=== PATIENT | male | born 1940 | race Caucasian/White ===

== ENCOUNTER 2018-10-20 08:38 | Day surgery (SDC) | payer MEDICARE ==
[2018-10-19 13:42] VITALS: BMI 22.7
[2018-10-20] MEDS ORDERED: Loperamide HCl 2 MG CAP PO SCH (13:30)
--- NOTE | 2018-10-20 19:39 | OP ---
DATE OF PROCEDURE: 10/20/2018 PROCEDURE: Colonoscopy with fecal transplant. PREPROCEDURE DIAGNOSES: 1. History of Crohn colitis in remission. 2. Recurrent diarrhea with Clostridium difficile, status post treatment 4 times now. POSTOPERATIVE DIAGNOSES: 1. Mild erosions in the rectum consistent with history of Crohn colitis. 2. 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 3. No evidence of active acute colitis. 4. Fecal transplant performed at 250 mL of fecal transplant solution comes [employer]. RECOMMENDATIONS: 1. Follow up in the office in 2 weeks. 2. Avoid antibiotics for one month. Continue other home medications. ANESTHESIA: TIVA. PROCEDURE IN DETAIL: The patient was informed of the risks, benefits, and possible complications of endoscopy including perforation, reaction to medication, aspiration, as well as indication for fecal transplant. There was recurrent C difficile infection, despite treatment with vancomycin and vancomycin tapers. Informed consent was obtained. The patient was brought to endoscopy suite, where he was sedated in a gradual fashion. Once he was comfortable, rectal exam was performed. The endoscope was advanced into the anal canal through the colon to the cecum and to the terminal ileum. There was atrophic mucosa throughout the colon, some pseudopolyps. There were mild erosions in the rectum and anal canal consistent with his history of Crohn colitis. There was no evidence of perirectal abscesses or fissures. The fecal transplant solution was instilled into the terminal ileum and cecum, and the colon was decompressed taking care not to suck the transplant material out. The patient was brought to recovery room in stable condition. Job ID: [id number]
== END 2018-10-20 14:10 | disposition home or self-care (01) ==
LOC: SDC 08:38
PROVIDERS: ATTEND Internal Medicine Gastroenterology
PROC: 3E0H8GC Introduction of Other Therapeutic Substance into Lower GI, Via Natural or Artificial Opening Endoscopic (ICD-10-PCS; principal; 2018-10-20)
DX: A04.72 Enterocolitis due to Clostridium difficile, not specified as recurrent (principal); K50.90 Crohn's disease, unspecified, without complications; I48.91 Unspecified atrial fibrillation; J42 Unspecified chronic bronchitis; Z86.73 Personal history of transient ischemic attack (TIA), and cerebral infarction without residual deficits; Z87.891 Personal history of nicotine dependence; Z79.01 Long term (current) use of anticoagulants; Z79.82 Long term (current) use of aspirin; Z79.899 Other long term (current) drug therapy; Z88.8 Allergy status to other drugs, medicaments and biological substances

== ENCOUNTER 2018-12-15 10:26 | Outpatient (CLI) | payer MEDICARE ==
--- NOTE | 2018-12-15 11:13 | RAD ---
CHEST TWO VIEWS: HISTORY: Dyspnea. COMPARISON: 06/26/2014 FINDINGS: Right apical pleural thickening. Linear and interstitial increased markings bilaterally with some rekha nting of the right costophrenic angle, stable. No confluent pneumonia, overt edema or pleural effusio n. IMPRESSION: No significant acute intrathoracic disease. Stable from prior study. POS: [facility]
== END 2018-12-15 10:27 | disposition home or self-care (01) ==
LOC: RAD 10:26
PROVIDERS: ATTEND Internal Medicine Critical Care Medicine
DX: R06.00 Dyspnea, unspecified (principal)
CPT/HCPCS: 71046

== ENCOUNTER 2021-01-02 03:24 | Inpatient (IN) | payer MEDICARE ==
[2021-01-02] MEDS ORDERED: Acetaminophen 325 MG TAB PO PRN (05:46)
[2021-01-02] MEDS ORDERED: Ondansetron PF 4 MG/2 ML Vial IVP PRN (05:46)
[2021-01-02 06:20] LABS: #Basophils 0.1 thou/uL (0.0-0.2); #Eosinphils 0.1 thou/uL (0.0-0.7); #Lymphocytes 0.7 thou/uL (1.20-3.40); #Neutrophils 8.1 thou/uL (1.40-6.50); %Basophils 0.6 % (0.0-1.0); %Eosinophils 0.9 % (0.0-10.0); %Lymphocytes 7.3 % (21.0-51.0); %Monocytes 10.3 % (0.0-10.0); %Neutrophils 80.9 % (42.0-75.0); Hemoglobin 9.2 g/dL (14.0-18.0); Mean Corpuscular HGB CONC 31.2 g/dL (32.0-36.0); Mean Corpuscular Hemoglobin 26.8 pg (27.0-31.0); Mean Corpuscular Volume 85.8 fL (78.0-98.0); Mean Platelet Volume 6.4 fL (7.4-10.4); Platelet Count 341 thou/uL (130-400); RBC Distribution Width 14.9 % (11.5-14.5); Red Blood Cell (RBC) Count 3.43 mill/uL (4.70-6.10)
[2021-01-02 06:29] LABS: PTT 29.7 sec (22.9-36.1)
[2021-01-02 06:30] LABS: Prothrombin Time 23.4 sec (12.0-14.7)
[2021-01-02 06:42] LABS: ALT (SGPT) 13 U/L (8-55); AST (SGOT) 25 U/L (5-34); Albumin 3.6 g/dL (3.4-4.8); Alkaline Phosphatase 86 U/L (40-110); Anion Gap 12 mmol/L (10-20); BUN (Urea Nitrogen) 18 mg/dL (8.4-25.7); Bilirubin, Total 0.8 mg/dL (0.2-1.2); Calc. Creatinine Clearance 0 mL/min (70-130); Calcium 8.7 mg/dL (7.8-10.44); Carbon Dioxide 24 mmol/L (23-31); Chloride 104 mmol/L (98-107); Glucose 117 mg/dL (83-110); Potassium 4.4 mmol/L (3.5-5.1); Protein, Total 6.6 g/dL (5.8-8.1); Sodium 136 mmol/L (136-145)
[2021-01-02] MEDS ORDERED: Sodium Chloride 0.9% 1,000 ML IV SCH (07:30)
[2021-01-02] MEDS: Pantoprazole 40 MG VIAL IVP SCH ×2 (07:34→18:22)
[2021-01-02 07:52] VITALS: BMI 20.4
[2021-01-02] MEDS: Bisacodyl 10 MG SUPP PR SCH ×2 (10:35→17:07)
[2021-01-02] MEDS: Polyethylene Glycol 3350 17 GM Packet PO SCH ×2 (13:07→21:41)
[2021-01-02] MEDS: Fleet Enema 133 ML BOT PR SCH ×2 (14:30→21:42)
[2021-01-02 17:27] LABS: Hemoglobin 9.7 g/dL (14.0-18.0)
[2021-01-02 18:41] LABS: Bacteria/HPF None Seen HPF (None Seen); Bilirubin Negative (Negative); Blood, Urine Negative (Negative); Clarity Clear (Clear); Glucose, Urine (Dipstick) Normal (Negative); Ketone, Urine Negative (Negative); Leukocyte Negative Leu/uL (Negative); Nitrite Negative (Negative); Protein, Urine (Dipstick) 20 mg/dL (Neg-Trace); Specific Gravity, Urine 1.044 (1.002-1.036); Squamous Epithelial None Seen HPF (0-3); Urobilinogen Normal mg/dL (Less than 2)
[2021-01-02 18:43] LABS: Urine Culture Reflex Yes Yes
[2021-01-02] MEDS ORDERED: TAMSULOSIN PO SCH (21:00)
[2021-01-02] MEDS ORDERED: DUTASTERIDE PO SCH (21:00)
[2021-01-02] MEDS: Melatonin 3 MG TAB PO SCH (21:41)
[2021-01-02] MEDS: Atorvastatin Calcium 10 MG TAB PO SCH (21:41)
[2021-01-02] MEDS: Tamsulosin HCl 0.4 MG CAP PO SCH (21:41)
[2021-01-02] MEDS: Dutasteride 0.5 MG CAP PO SCH (21:41)
[2021-01-03] MEDS: Bisacodyl 10 MG SUPP PR SCH ×3 (03:49→17:06)
[2021-01-03 04:27] LABS: Hemoglobin 8.4 g/dL (14.0-18.0); Mean Corpuscular HGB CONC 32.3 g/dL (32.0-36.0); Mean Corpuscular Hemoglobin 27.3 pg (27.0-31.0); Mean Corpuscular Volume 84.5 fL (78.0-98.0); Mean Platelet Volume 6.4 fL (7.4-10.4); Platelet Count 342 thou/uL (130-400); RBC Distribution Width 14.6 % (11.5-14.5); Red Blood Cell (RBC) Count 3.09 mill/uL (4.70-6.10); White Blood Cell (WBC) Count 14.3 thou/uL (4.8-10.8)
[2021-01-03 04:40] LABS: Anion Gap 11 mmol/L (10-20); BUN (Urea Nitrogen) 15 mg/dL (8.4-25.7); Calc. Creatinine Clearance 84 mL/min (70-130); Calcium 8.6 mg/dL (7.8-10.44); Carbon Dioxide 26 mmol/L (23-31); Chloride 103 mmol/L (98-107); Glucose 115 mg/dL (83-110); Potassium 4.1 mmol/L (3.5-5.1); Sodium 136 mmol/L (136-145)
[2021-01-03 05:12] LABS: Band 4 % (5-11); Eosinophils 2 % (0-10); Lymphocytes 3 % (21-51); MDiff Complete? YES; Monocytes 8 % (0-10); Neutrophil 83 % (42-75)
[2021-01-03] MEDS: Fleet Enema 133 ML BOT PR SCH ×3 (07:22→21:50)
[2021-01-03] MEDS ORDERED: FLU VACC QS2021-22(65YR UP)/PF 240 MCG/0.7 ML SYRINGE IM ONE (09:00)
[2021-01-03] MEDS: Mesalamine DR 400 mg Capsule PO SCH (09:05)
[2021-01-03] MEDS: Montelukast Sodium 10 mg Tablet PO SCH (09:05)
[2021-01-03] MEDS: azaTHIOprine 50 MG TAB PO SCH (09:05)
[2021-01-03] MEDS: Pantoprazole 40 MG VIAL IVP SCH ×2 (09:05→17:45)
[2021-01-03] MEDS: Losartan 25 MG TAB PO SCH (09:05)
[2021-01-03] MEDS: Polyethylene Glycol 3350 17 GM Packet PO SCH ×2 (10:20→21:50)
[2021-01-03] MEDS: Atorvastatin Calcium 10 MG TAB PO SCH (21:49)
[2021-01-03] MEDS: Melatonin 3 MG TAB PO SCH (21:49)
[2021-01-03] MEDS: Tamsulosin HCl 0.4 MG CAP PO SCH (21:49)
[2021-01-03] MEDS: Dutasteride 0.5 MG CAP PO SCH (21:49)
[2021-01-04] MEDS: Bisacodyl 10 MG SUPP PR SCH ×3 (02:42→16:19)
[2021-01-04 06:01] LABS: Hemoglobin 8.2 g/dL (14.0-18.0); Mean Corpuscular HGB CONC 32.2 g/dL (32.0-36.0); Mean Corpuscular Volume 83.9 fL (78.0-98.0); Mean Platelet Volume 6.7 fL (7.4-10.4); Platelet Count 352 thou/uL (130-400); RBC Distribution Width 14.7 % (11.5-14.5); Red Blood Cell (RBC) Count 3.04 mill/uL (4.70-6.10)
[2021-01-04 06:09] LABS: Anion Gap 11 mmol/L (10-20); BUN (Urea Nitrogen) 15 mg/dL (8.4-25.7); Calc. Creatinine Clearance 84 mL/min (70-130); Calcium 8.6 mg/dL (7.8-10.44); Carbon Dioxide 28 mmol/L (23-31); Chloride 100 mmol/L (98-107); Glucose 103 mg/dL (83-110); Sodium 135 mmol/L (136-145)
[2021-01-04] MEDS: Fleet Enema 133 ML BOT PR SCH ×2 (06:44→13:54)
[2021-01-04] MEDS: Pantoprazole 40 MG VIAL IVP SCH ×3 (07:33→22:02)
[2021-01-04 08:20] LABS: Anisocytosis SLIGHT = 6-15 cells (100X) (0-5/hpf); Band 2 % (5-11); Lymphocytes 7 % (21-51); MDiff Complete? YES; Monocytes 3 % (0-10); Neutrophil 88 % (42-75); Target Cells SLIGHT = 2-5 cells (100X) (0-1/hpf)
[2021-01-04] MEDS: Mesalamine DR 400 mg Capsule PO SCH (09:31)
[2021-01-04] MEDS: azaTHIOprine 50 MG TAB PO SCH (09:31)
[2021-01-04] MEDS: Montelukast Sodium 10 mg Tablet PO SCH (09:31)
[2021-01-04] MEDS: Losartan 25 MG TAB PO SCH (09:31)
[2021-01-04] MEDS: Polyethylene Glycol 3350 17 GM Packet PO SCH ×2 (10:03→20:33)
[2021-01-04] MEDS: Atorvastatin Calcium 10 MG TAB PO SCH (20:32)
[2021-01-04] MEDS: Melatonin 3 MG TAB PO SCH (20:32)
[2021-01-04] MEDS: Dutasteride 0.5 MG CAP PO SCH (22:02)
[2021-01-04] MEDS: Tamsulosin HCl 0.4 MG CAP PO SCH (22:02)
[2021-01-05] MEDS: Bisacodyl 10 MG SUPP PR SCH ×3 (02:54→17:56)
[2021-01-05] MEDS: Fleet Enema 133 ML BOT PR SCH ×4 (02:54→21:33)
[2021-01-05 05:13] LABS: Hemoglobin 8.3 g/dL (14.0-18.0); Mean Corpuscular HGB CONC 31.9 g/dL (32.0-36.0); Mean Corpuscular Volume 84.4 fL (78.0-98.0); Mean Platelet Volume 6.7 fL (7.4-10.4); Platelet Count 360 thou/uL (130-400); RBC Distribution Width 15.1 % (11.5-14.5); Red Blood Cell (RBC) Count 3.09 mill/uL (4.70-6.10); White Blood Cell (WBC) Count 15.7 thou/uL (4.8-10.8)
[2021-01-05 05:21] LABS: Anion Gap 10 mmol/L (10-20); BUN (Urea Nitrogen) 18 mg/dL (8.4-25.7); Calc. Creatinine Clearance 78 mL/min (70-130); Calcium 8.6 mg/dL (7.8-10.44); Carbon Dioxide 29 mmol/L (23-31); Chloride 99 mmol/L (98-107); Glucose 126 mg/dL (83-110); Potassium 3.8 mmol/L (3.5-5.1); Sodium 134 mmol/L (136-145)
[2021-01-05 05:36] LABS: Band 3 % (5-11); Lymphocytes 4 % (21-51); MDiff Complete? YES; Monocytes 13 % (0-10); Neutrophil 80 % (42-75)
[2021-01-05] MEDS: Montelukast Sodium 10 mg Tablet PO SCH (09:45)
[2021-01-05] MEDS: azaTHIOprine 50 MG TAB PO SCH (09:45)
[2021-01-05] MEDS: Losartan 25 MG TAB PO SCH (09:45)
[2021-01-05] MEDS: Mesalamine DR 400 mg Capsule PO SCH (09:45)
[2021-01-05] MEDS: Polyethylene Glycol 3350 17 GM Packet PO SCH ×2 (09:46→21:33)
[2021-01-05] MEDS: Pantoprazole 40 MG VIAL IVP SCH ×2 (09:46→12:08)
[2021-01-05] MEDS ORDERED: Iron, Sodium Ferric Gluconate 250 MG in Sodium Chloride 0.9% 250 ML 250 ML IVPB SCH (16:45)
[2021-01-05] MEDS: Dutasteride 0.5 MG CAP PO SCH (20:05)
[2021-01-05] MEDS: Tamsulosin HCl 0.4 MG CAP PO SCH (20:05)
[2021-01-05] MEDS: Melatonin 3 MG TAB PO SCH (20:06)
[2021-01-05] MEDS: Atorvastatin Calcium 10 MG TAB PO SCH (20:06)
[2021-01-06] MEDS: Bisacodyl 10 MG SUPP PR SCH ×2 (01:54→10:50)
[2021-01-06] MEDS: Fleet Enema 133 ML BOT PR SCH (05:37)
[2021-01-06 09:11] LABS: #Basophils 0.1 thou/uL (0.0-0.2); #Eosinphils 0.1 thou/uL (0.0-0.7); #Lymphocytes 0.9 thou/uL (1.20-3.40); #Monocytes 1.7 thou/uL (0.11-0.59); #Neutrophils 8.7 thou/uL (1.40-6.50); %Basophils 0.4 % (0.0-1.0); %Eosinophils 0.7 % (0.0-10.0); %Lymphocytes 7.9 % (21.0-51.0); %Monocytes 14.8 % (0.0-10.0); %Neutrophils 76.3 % (42.0-75.0); Hemoglobin 8.2 g/dL (14.0-18.0); Mean Corpuscular HGB CONC 31.7 g/dL (32.0-36.0); Mean Corpuscular Hemoglobin 26.7 pg (27.0-31.0); Mean Corpuscular Volume 84.2 fL (78.0-98.0); Mean Platelet Volume 6.7 fL (7.4-10.4); Platelet Count 382 thou/uL (130-400); RBC Distribution Width 15.1 % (11.5-14.5); Red Blood Cell (RBC) Count 3.06 mill/uL (4.70-6.10); White Blood Cell (WBC) Count 11.5 thou/uL (4.8-10.8)
[2021-01-06 09:29] LABS: Anion Gap 12 mmol/L (10-20); BUN (Urea Nitrogen) 16 mg/dL (8.4-25.7); Calc. Creatinine Clearance 87 mL/min (70-130); Calcium 8.3 mg/dL (7.8-10.44); Carbon Dioxide 28 mmol/L (23-31); Chloride 102 mmol/L (98-107); Glucose 115 mg/dL (83-110); Magnesium 2.1 mg/dL (1.6-2.6); Potassium 3.5 mmol/L (3.5-5.1); Sodium 138 mmol/L (136-145)
[2021-01-06] MEDS: Mesalamine DR 400 mg Capsule PO SCH (10:45)
[2021-01-06] MEDS: azaTHIOprine 50 MG TAB PO SCH (10:49)
[2021-01-06] MEDS: Losartan 25 MG TAB PO SCH (10:49)
[2021-01-06] MEDS: Montelukast Sodium 10 mg Tablet PO SCH (10:49)
[2021-01-06] MEDS: Polyethylene Glycol 3350 17 GM Packet PO SCH (10:51)
[2021-01-06 13:49] VITALS: BP 128/62; TEMP 97.8
== END 2021-01-06 13:35 | DRG 604 ==
LOC: 2NO 05:44
PROVIDERS: ADMIT Internal Medicine; ATTEND Internal Medicine
DX: S01.81XA Laceration without foreign body of other part of head, initial encounter (principal); J69.0 Pneumonitis due to inhalation of food and vomit; S22.32XA Fracture of one rib, left side, initial encounter for closed fracture; K50.90 Crohn's disease, unspecified, without complications; D62 Acute posthemorrhagic anemia; Z20.822 Contact with and (suspected) exposure to COVID-19; J43.9 Emphysema, unspecified; I48.91 Unspecified atrial fibrillation; I10 Essential (primary) hypertension; N40.0 Benign prostatic hyperplasia without lower urinary tract symptoms; F03.90 Unspecified dementia, unspecified severity, without behavioral disturbance, psychotic disturbance, mood disturbance, and anxiety; E78.5 Hyperlipidemia, unspecified; S83.004A Unspecified dislocation of right patella, initial encounter; J98.4 Other disorders of lung; R29.6 Repeated falls; K56.41 Fecal impaction; R19.5 Other fecal abnormalities; W18.30XA Fall on same level, unspecified, initial encounter; D72.829 Elevated white blood cell count, unspecified; Z79.01 Long term (current) use of anticoagulants; Z98.890 Other specified postprocedural states; Z85.118 Personal history of other malignant neoplasm of bronchus and lung; Z90.2 Acquired absence of lung [part of]; Z91.81 History of falling; Z88.8 Allergy status to other drugs, medicaments and biological substances; Z79.899 Other long term (current) drug therapy
CPT/HCPCS: 36415; 70551; 71046; 80048; 80053; 81001; 83735; 85007; 85025; 85027; 85610; 85730; 87086; C9113; J2916; J7050; J7500; J7620